=== PATIENT | male | born 1985 | race Caucasian/White ===

== ENCOUNTER 2017-10-28 11:35 | Emergency (ER) | payer MEDICAID ==
[~2017-10-28] VITALS: Ht 180.3 cm; Wt 84.1 kg
[2017-10-28 11:46] VITALS: Ht 180.3 cm; Wt 84.1 kg
[2017-10-28 12:37] LABS: APPEARANCE CLEAR (CLEAR); BILIRUBIN NEGATIVE (NEGATIVE); COLOR STRAW (YELLOW); GLUCOSE NEGATIVE (NEGATIVE); KETONE NEGATIVE (NEGATIVE); NITRITE NEGATIVE (NEGATIVE); PROTEIN NEGATIVE (NEGATIVE); SPECIFIC GRAVITY 1.005 (1.005-1.020); UROBILINOGEN NORMAL (NORMAL)
[2017-10-28 12:50] LABS: ALBUMIN 4.1 g/dL (3.4-5.0); ALKALINE PHOSPHATASE 64 U/L (46-116); ALT (SGPT) 28 U/L (10-68); BILIRUBIN - TOTAL 0.62 mg/dL (0.2-1.3); CALC OSMOLALITY 281 mosm/kg (275-300); CALCIUM 8.8 mg/dL (8.5-10.1); CARBON DIOXIDE 28.1 mmol/L (21.0-32.0); CHLORIDE - SERUM 105 mmol/L (98-107); CREATININE - SERUM 0.9 mg/dL (0.6-1.3); GLUCOSE 104 mg/dL (74-106); POTASSIUM - SERUM 3.9 mmol/L (3.5-5.1); PROTEIN - SERUM 7.3 g/dL (6.4-8.2); SODIUM 141 mmol/L (136-145); UREA NITROGEN 14 mg/dL (7-18); eGFR NON AFRICAN AMERICAN > 90 mL/min (90-120)
[2017-10-28 13:02] LABS: AMYLASE - SERUM 43 U/L (25-115); CKMB 1.1 U/L (0.0-3.6); CREATINE KINASE 79 UL (21-232); LIPASE 83 U/L (73-393); THYROID STIMULATING HORMONE 1.02 uIU/mL (0.36-3.74)
[2017-10-28 13:03] LABS: TROPONIN-I < 0.017 ng/mL (0.000-0.060)
[2017-10-28 14:10] LABS: BASOPHILS 0.2 % (0-2); EOSINOPHILS 0.3 % (0-7); HEMATOCRIT 47.5 % (42.0-54.0); HEMOGLOBIN 16.7 g/dL (13.5-17.5); IMMATURE GRANULOCYTES 0.6 % (0-5); LYMPHOCYTES 12.7 % (15-50); MCH 31.2 pg (26.0-34.0); MCHC 35.2 g/dL (31.0-37.0); MCV 88.8 fL (80.0-100.0); MONOCYTES 5.9 % (2-11); NEUTROPHILS 80.3 % (40-80); PLATELET COUNT 211 10x3/uL (130-400); RBC 5.35 10x6/uL (4.20-6.10); WBC 8.8 10x3/uL (4.8-10.8)
[2017-10-28] MEDS ORDERED: VISTARIL25 MG PO (14:25)
[2017-10-28 14:48] VITALS: BP 148/078
== END 2017-10-28 14:52 | disposition home or self-care (01) ==
LOC: D.ER 11:35
PROVIDERS: Emergency Medicine
DX: F41.9 Anxiety disorder, unspecified (principal); F17.200 Nicotine dependence, unspecified, uncomplicated